=== PATIENT | female | born 1985 | race Native Hawaiian/Other Pacific Islander ===

== ENCOUNTER 2016-11-16 16:53 | Emergency (ER) | payer OTHER ==
[~2016-11-16] VITALS: Ht 165.1 cm; Wt 113.4 kg
[2016-11-16 17:05] VITALS: BP 165/87; TEMP 98.6
== END 2016-11-16 17:40 | disposition home or self-care (01) ==
LOC: ED 16:53
DX: S83.91XA Sprain of unspecified site of right knee, initial encounter (principal)
CPT/HCPCS: 99282

== ENCOUNTER 2021-08-02 08:23 | Outpatient (CLI) | payer OTHER ==
[2021-08-02 08:42] LABS: PLATELET COUNT 300 K/uL (152-353)
[2021-08-02 09:17] LABS: POTASSIUM 3.8 mmol/L (3.6-5.2)
== END 2021-08-02 20:18 | disposition home or self-care (01) ==
LOC: LABW 08:23
PROVIDERS: ATTEND Nurse Practitioner Family
DX: I10 Essential (primary) hypertension (principal); E66.9 Obesity, unspecified; Z12.72 Encounter for screening for malignant neoplasm of vagina; M79.7 Fibromyalgia; Z79.899 Other long term (current) drug therapy
CPT/HCPCS: 36415; 80053; 80061; 82306; 82607; 83036; 83735; 84443; 85027